=== PATIENT | female | born 1985 | race American Indian/Alaskan Native ===

== ENCOUNTER 2022-02-07 06:09 | Day surgery (SDC) | payer BC ==
[2022-02-04 11:06] LABS: Hematocrit 37.2 % (30.3-42.9); Hemoglobin 12.6 gm/dl (10.1-14.3); Mean Corpuscular HGB Conc 34 % (30-34); Mean Corpuscular Volume 88 fl (79-97); Platelet Count 263 K/mm3 (140-440); Red Blood Count 4.22 M/mm3 (3.65-5.03); Red Cell Distribution Width 13.8 % (13.2-15.2)
[2022-02-04 11:27] LABS: BUN/Creatinine Ratio 13; Blood Urea Nitrogen 10 mg/dL (7-17); Calcium 8.5 mg/dL (8.4-10.2); Hemolysis Index 7
--- NOTE | 2022-02-06 13:41 | History and Physical Report ---
History of Present Illness Date of examination: 02/04/22 History of present illness: This is a 36 years old female who presents with uterine fibroids and menstrual disorder. The symptoms began 4-6 months ago. The patient complains of pelvic pressure a menses, heavy bleeding, dysmenhorrhea, , lightheadness, fatigue and cramping, but denies spotting, lack of menses, she may be , history of thyroid disease, history of bleeding disorders and orthostatic symptoms. Menstrual periods have been absent and with excessive flow. Menstrual flow lasts 7 days. Treatment tried to date includes: control pills, Depo Provera and NSAIDs.Patient's work up has included hysterosonogram with a benign endometrial biopsy and revealed multiple myomas. Patient's symptoms when present disrupts her normal daily activities Patient desires definitive treatment Vital Signs: Patient Profile: 36 Years Old Female LMP: 05/2020 Height: 68 inches Weight: 242 pounds BMI: 36.79 Temp: 98.3 degrees F BP sittin / 60 (left arm) Menstrual History: LMP (date): 05/2020 Current Method of Contraception: Other Past History : 3 Term Births: 3 Premature Births: 0 Living Children: 3 Para: 3 Mult. Births: 0 Prev : 1 Aborta: 0 Elect. Ab: 0 Spont. Ab: 0 Ectopics: 0 Current Allergies (reviewed today): AMOXICILLIN (AMOXICILLIN) (Critical) * ZPACK (Critical) Past Medical History: Asthma Esophageal dysphagia Anemia Fibroids Past Surgical History: Esphogeal "release" surgery (2020) Esophageal stretching multiple Tonsillectomy Left Breast Lumpectomy: (2002) Tubal Ligation (2017) Family History Summary: Other Family Member - Has No Family History of Ovarvian Cancer - Entered On: 10/18/2021 Other Family Member - Has No Family History of Colon Cancer - Entered On: 10/18/2021 Other Family Member - Has Family History Breast Cancer - Entered On: 10/18/2021 Other Family Member - Has Family History of Hypertension - Entered On: 10/18/2021 Social History: Marital Status: / Children: Occupation: Account exec [employer] Risk Factors Tobacco use: never Passive smoke exposure: no Alcohol use: yes Type: OCC Caffeine use (drinks/day): 0 Exercise (times/week): 3 Seatbelt use: 100 % [employer] History Operations: Esphogeal "release" surgery (2020) Esophageal stretching multiple Tonsillectomy Left Breast Lumpectomy: (2002) Tubal Ligation (2017) Abnormal PAP: positive Uterine Anomaly: positive fibroids Infection History HIV Risk Eval: no Hx of STD: None Review of Systems General Complains of fatigue. Denies fever, chills, sweats, anorexia, weakness, malaise, weight loss and sleep disorder. Complains of menorrhagia, pelvic pain and painful periods. Denies vaginal discharge, incontinence, dysuria, hematuria, urinary frequency, amenorrhea, abnormal vaginal bleeding, genital sores, decreased libido, painful sex, urinary urgency, hot flashes, vaginal dryness, vaginal i tching and vaginal odor. CV Denies chest pains, palpitations, syncope, dyspnea on exertion, orthopnea, PND and peripheral edema. Resp Denies cough, dyspnea at rest, excessive sputum, hemoptysis, wheezing and pleurisy. GI Denies nausea, vomiting, diarrhea, constipation, change in bowel habits, abdominal pain, melena, hematochezia, jaundice, gas/bloating, indigestion/heartburn, dysphagia and odynophagia. Breast Denies left breast lump, right breast lump, nipple discharge, bloody discharge from nipple, breast pain, abnormal mammogram and breast enlargement. Psych Denies depression, anxiety, irritability and mood swings. Past History Past Medical History: other (SEE HPI FOR DETAILS) Past Surgical History: Other (SEE HPI FOR DETAILS) Social history: full code, other (SEE HPI FOR DETAILS) Family history: other (SEE HPI FOR DETAILS) Medications and Allergies Allergies Allergy/AdvReac Type Severity Reaction Status Date / Time amoxicillin Allergy Anaphylaxis Verified 01/29/22 13:29 azithromycin Allergy Hives Verified 01/29/22 13:29 [From Zithromax Z-Lopez] Home Medications Medication Instructions Recorded Confirmed Last Taken Type Albuterol Sulfate [Proair 90 mcg IH PRN PRN 01/29/22 01/29/22 Unknown History Respiclick] Etonogestrel/Ethinyl Estradiol 1 each VG Q3W 01/29/22 01/29/22 Unknown History [Nuvaring Vaginal Ring] Fluticasone (Nf) [Flovent Hfa(Nf)] 2 puff IH BID 01/29/22 01/29/22 Unknown History medroxyPROGESTERone ACETATE 10 mg PO QDAY 01/29/22 01/29/22 Unknown History [Provera] Active Meds: Active Medications Clindamycin HCl (Cleocin 900 Mg/50 Ml) 900 mg in 50 mls @ 100 mls/hr IV PREOP NR; Protocol Stop: 02/07/22 23:59 Gentamicin Sulfate 500 mg/ (Sodium Chloride) 112.5 mls @ 200 mls/hr IV PREOP ONE; Protocol Stop: 02/07/22 07:33 Review of Systems Constitutional: other (SEE HPI FOR DETAILS) Exam - Physical Exam Narrative exam: HEENT: normocephalic, no lesions or deformities Skin no significant abnormal lesions or rashes Chest: respiratory effort normal, clear to auscultation CV: regular, normal S1-S2, no murmur, no rub, no gallop Abdomen: obese normal bowel sounds, soft, nontender, no HSM Well healed pfannenstiel scar Neuro: no gross anomalities Extremities: no clubbing, cyanosis, or edema [employer] Exams Vulva/Vagina: No lesions, normal BUS, normal rugae blood in vault Cervix: No lesions; no cervical motion tenderness Uterus: unable to palpate due to obesity Adnexae: unable to palpate due to obesity Rectovaginal: exam defered - Constitutional Vitals: Temp Pulse Resp BP Pulse Ox 97.7 F 84 16 122/84 99 02/04/22 10:35 02/04/22 10:35 02/04/22 10:35 02/04/22 10:35 02/04/22 10:35 Results - Labs CBC & Chem 7: 02/04/22 Unknown 02/04/22 Unknown Assessment and Plan - Patient Problems (1) Intramural leiomyoma of uterus Status: Acute Plan to address problem: Diagnosis explained to patient . Questions answered. Discussed with patient various medical, surgical and radiological therapies common for treatment including expectant management, myomectomy hysterectomy and uterine artery embolization Patient desires hysterectomy Discussed risks and benefits of laparotomy, laparoscopy, vaginal and robotic assisted approaches for hysterectomies Patient desires robotic assisted total hysterectomy. Consent reviewed and signed . The risks and alternatives for this surgery were reviewed with the patient. Discuss the risks of the surgery including infection, bleeding possibly heavy enough to require a blood transfusion, possible damage to bowel, bladder or ureter. Patient understand that this surgery with make her sterile.Patient understands if her ovaries are removed she will become menopausal. Also if unable to complete robitcally a laparotomy may be required. Patient understands and desires to proceed. (2) Dysmenorrhea Status: Acute Plan to address problem: Probably secondary to # 1 (3) Excessive and frequent menstruation with regular cycle Status: Acute Plan to address problem: Probably secondary to # 1 (4) Anemia due to acute blood loss Status: Acute Plan to address problem: Probably secondary to # 3 (5) Asthma Status: Chronic Qualifiers: Asthma severity: moderate (6) Esophageal dysphagia Status: Chronic (7) BMI 35.0-35.9,adult Status: Chronic Plan to address problem: Patient has been advised that obesity does increase risks of surgical and risks of post operative complications.
[~2022-02-07 06:09] MED LIST: ACETAMINOPHEN 500 MG TAB PO SCH; CELECOXIB 200 MG CAP PO NR; GABAPENTIN 300 MG CAP PO NR; LACTATED RINGERS 1,000 ML IV SCH; MIDAZOLAM 2 MG/2 ML INJ IV NR; SCOPOLAMINE TRANSDERMAL PATCH 72 HR TD NR; fentaNYL 100 MCG/2 ML INJ IV PRN
[2022-02-07] MEDS ORDERED: GENTAMICIN 500 MG in SODIUM CHLORIDE 0.9% 100 ML IV ONE (07:00)
--- NOTE | 2022-02-07 07:14 | Anesthesia Consultation ---
<MEGAN DEVINE - Last Filed: 02/07/22 07:11> Anesthesia Consult and Med Hx Date of service: 02/07/22 - Airway Anesthetic Teeth Evaluation: Good ROM Head & Neck: Adequate Mental/Hyoid Distance: Adequate Mallampati Class: Class II Intubation Access Assessment: Probably Good - Pulmonary Exam CTA: Yes - Cardiac Exam Cardiac Exam: RRR - Pre-Operative Health Status ASA Pre-Surgery Classification: ASA2, ASA3 - Pulmonary Hx Smoking: Yes (VAPES DAILY) Hx Asthma: Yes (CONTROLLED WITH INHALERS) Hx Pneumonia: No - Cardiovascular System Hx Hypertension: No Hx Heart Attack/AMI: No - Central Nervous System Hx Neuromuscular Disorder: No Hx Psychiatric Problems: No - Gastrointestinal Hx Gastroesophageal Reflux Disease: Yes (uncontrolled ) - Endocrine Hx Renal Disease: No Hx Liver Disease: No - Hematic Hx Anemia: Yes Hx Sickle Cell Disease: No - Other Systems Hx Alcohol Use: Yes (DRINKS 2-3 TIMES A WEEK) Hx Substance Use: No Hx Cancer: No Hx Obesity: Yes (BMI 36.5) - Additional Comments Anesthesia Medical History Comments: No GAC. No FHAC. <YANDY MALAVE - Last Filed: 02/07/22 07:18> Anesthesia Consult and Med Hx - Pre-Operative Health Status ASA Pre-Surgery Classification: ASA3
--- NOTE | 2022-02-07 07:14 | Anesthesia Day of Surgery ---
Anesthesia Day of Surgery - Day of Surgery Patient Examined: Yes Patient H&P Reviewed: Yes Patient is NPO: Yes
[2022-02-07] MEDS ORDERED: oxyCODONE /ACETAMINOPHEN 5-325MG TAB PO PRN (07:18)
[2022-02-07] MEDS ORDERED: ONDANSETRON 4 MG/2 ML INJ IV PRN (07:18)
[2022-02-07] MEDS ORDERED: HYDROmorphone 0.5 MG/0.5 ML INJ IV PRN (07:18)
[2022-02-07] MEDS ORDERED: BUPIVACAINE-EPINEPHRINE/PF 0.25%-1:200,000 (30 ML) VIAL INFILTRATI ONE (07:23)
[2022-02-07] MEDS ORDERED: dexAMETHasone 4 MG/ML VIAL ONE (07:23)
[2022-02-07] MEDS ORDERED: LIDOCAINE MPF (2%) 20 MG/1 ML VIAL 5 ML ONE ×2 (07:26→07:30)
[2022-02-07] MEDS ORDERED: propofoL 200 MG/20 ML VIAL IV ONE (07:30)
[2022-02-07] MEDS ORDERED: dexAMETHasone 20 MG/5 ML VIAL ONE (07:30)
[2022-02-07] MEDS ORDERED: ePHEDrine SULFATE 50 MG/1 ML INJ ONE (07:30)
[2022-02-07] MEDS ORDERED: HYDROmorphone 1 MG/1 ML INJ ONE (07:30)
[2022-02-07] MEDS ORDERED: SUCCINYLCHOLINE CHLORIDE 200 MG/10 ML INJ MDV ONE (07:30)
[2022-02-07] MEDS ORDERED: ROCURONIUM 50 MG/5 ML INJ IV ONE (07:30)
[2022-02-07] MEDS ORDERED: NEOMY 40 MG/POLYMYXIN B 200,000 UNITS/ML (GU) AMPULE IR ONE ×2 (07:43→10:52)
[2022-02-07] MEDS ORDERED: SODIUM CHLORIDE 0.9% IRRIG SOLN 2000 ML IR ONE (10:52)
[2022-02-07] MEDS ORDERED: SODIUM CHLORIDE 0.9% IRR 1,500 ML BOTTLE IR ONE (10:52)
[2022-02-07] MEDS ORDERED: IBUPROFEN 600 MG TAB PO PRN (10:55)
[2022-02-07] MEDS ORDERED: HYDROcodone/ACETAMINOPHEN 5-325 MG TAB PO PRN (10:55)
--- NOTE | 2022-02-07 11:14 | Operative Report ---
Operative Report Operative Report: Date of procedure: February 07, 2022 Pre-operative diagnosis: Symptomatic leiomyomata with menorrhalgia dysmenorrhea pelvic pain Post-operative diagnosis: Same with pelvic adhesive disease Procedure name(s):Robotic Assisted Total Hysterectomy with bilateral salpingectomy Surgeon: Ted Clark MD Building Drafter: Marlin Jimenez, certified personal finance counselor Anesthesia: General EBL: 100 cc Complications: None Findings: Patient with a uterus approximately 10-12 weeks in size with adhesions between anterior uterus and the bladder and bilaterally interrupted fallopian tubes. Bilateral ovaries appear normal Specimen(s): Uterus with bilateral fallopian tubes Procedure: Patient was brought to the operating room where general anesthesia was induced without difficulty. Patient was placed in the dorsal lithotomy position. Prepped and draped in the usual sterile manner for robotic procedure. Surgical timeout was performed. Vazquez catheter was placed without difficulty. Speculum was placed in the vagina. A large V-Care Uterine manipulator was placed without difficulty. Attention was now switched to the patient's abdomen. A vertical supra-umbilicus incision was made with a scalpel. A 8 mm trocar was placed in this incision under direct visualization. Intra-abdominal placement was verified with no evidence of internal organ damage. The patient was insufflated approximately 3-1/2 L of CO2 gas. She was placed in Trendelenburg position. The patient pelvic findings were noted as above. It was determined that the patient was a candidate for robotic procedure. Next 3 additional 8 mm trochars were placed for the robotic arms. 1 trocar was placed approximately 8cm from the center trocar on the patient's right and the 2 other trocar placements were placed left of the midline. The first 1 was approximately 8 cm from the midline incision with additional 1 place laterally approximately 6 to 8 cm. Each robotic trocar was placed under direct visualization with no evidence of internal organ damage. One 5 mm trocar was placed 2 fingerbreadths above the right iliac crest. At this time the patient was placed in extreme Trendelenburg. The da Louis robot was then docked on the patient's right side. The trocars connected to the robot appropriately robotic instruments were placed under direct visualization no evidence of internal organ damage.. At this time I took my place under the robotic operating solis. Starting on the patient's right side the ureter was identified and found to be out of the operative field. Using the Synchroseal device the mesosalpinx under the fallopian tube were cauterized and cut starting from the distal end. Next the round ligament on that side was cauterized and cut. The broad ligament was opened and the bladder flap was started and taken to the midline on the side. Posterior leaf of the broad ligament was opened more. Next the utero-ovarian complex was then cauterized and cut. The uterine vessels were skeletonized. The ureter was clearly seen out of the operative field. The bladder was pushed away from the anterior uterus. The right uterine vessels were then cauterized and cut. Attention was then switched to the patient's left side. The same procedure was repeated on the left side with free and the left fallopian tube, completing the the bladder flap followed by cauterizing and cutting the utero-ovarian complex then isolating the uterine vessels cauterized and cutting and completing the bladder flap from the left side. At this time the uterus was appearing very cyanotic. After inspecting the bladder flap to insured no evidence of bladder injury, the colpotomy was then started. Incision started at 12 o'clock position until the V-Care could be seen. This incision was extended from 12-9 o'clock . Then from 12:00 to 3:00. Then from 9:00 to 6:00. This incision was extended from 3:00 to 6:00. At this time colpotomy was complete with no evidence of adjacent organ damage. The manager surgery remove the uterus from through the colpotomy site. The vaginal cuff was irrigated and cauterized and found to be hemostatic. The cuff was closed with roboticly using 0 V- Lock suture. This closure was hemostatic after irrigation and Bovie. All pedicles were inspected and found to be hemostatic. The ureters were identified bilaterally and found to be functioning normal. The patient had clear urine in the Vazquez catheter with no evidence of mixture with blood. All instruments were then removed. The trocar sites were closed incisions were closed subcuticularly with 4-0 Monocryl. Dermabond was placed over the skin incisions. The patient tolerated procedure well. She was awakened in the operating room and accompanied to the recovery room in good condition.
--- NOTE | 2022-02-07 11:19 | Short Stay Summary ---
Short Stay Documentation Date of service: 02/07/22 - History Principal diagnosis: Symptomatic leiomyomata H&P: dictated Past Medical History: other (SEE HPI FOR DETAILS) Past Surgical History: Other (SEE HPI FOR DETAILS) Social history: full code, other (SEE HPI FOR DETAILS) - Allergies and Medications Current Medications: Allergies amoxicillin Allergy (Verified 01/29/22 13:29) Anaphylaxis azithromycin [From Zithromax Z-Lopez] Allergy (Verified 01/29/22 13:29) Hives Home Medications Medication Instructions Recorded Confirmed Last Taken Type Albuterol Sulfate [Proair 90 mcg IH PRN PRN 01/29/22 01/29/22 Unknown History Respiclick] Etonogestrel/Ethinyl Estradiol 1 each VG Q3W 01/29/22 01/29/22 Unknown History [Nuvaring Vaginal Ring] Fluticasone (Nf) [Flovent Hfa(Nf)] 2 puff IH BID 01/29/22 02/07/22 02/07/22 05:00 History medroxyPROGESTERone ACETATE 10 mg PO QDAY 01/29/22 02/07/22 02/04/22 09:00 Histo ry [Provera] Active Medications Acetaminophen (Acetaminophen 500 Mg Tab) 1,000 mg PO PREOP CHUCKIE Stop: 02/07/22 23:59 Last Admin: 02/07/22 06:55 Dose: 1,000 mg Hydrocodone Bitart/Acetaminophen (Hydrocodone/Acetaminophen 5-325 Mg Tab) 2 each PO Q6H PRN PRN Reason: Pain, Moderate (4-6) Celecoxib (Celecoxib 200 Mg Cap) 200 mg PO PREOP NR Stop: 02/07/22 23:59 Last Admin: 02/07/22 06:55 Dose: 200 mg Fentanyl (Fentanyl 100 Mcg/2 Ml Inj) 100 mcg IV ONCE PRN PRN Reason: sedation for nerve block Stop: 02/07/22 23:59 Last Admin: 02/07/22 07:46 Dose: 100 mcg Gabapentin (Gabapentin 300 Mg Cap) 300 mg PO PREOP NR Stop: 02/07/22 23:59 Last Admin: 02/07/22 06:55 Dose: 300 mg Hydromorphone HCl (Hydromorphone 0.5 Mg/0.5 Ml Inj) 0.5 mg IV Q10MIN PRN PRN Reason: Pain , Severe (7-10) Stop: 02/07/22 23:59 Clindamycin HCl (Cleocin 900 Mg/50 Ml) 900 mg in 50 mls @ 100 mls/hr IV PREOP NR; Protocol Stop: 02/07/22 23:59 Lactated Ringer's (Lactated Ringers) 1,000 mls @ 100 mls/hr IV DIRECT CHUCKIE Stop: 02/07/22 23:59 Last Admin: 02/07/22 07:05 Dose: 100 mls/hr Ibuprofen (Ibuprofen 600 Mg Tab) 600 mg PO Q6H PRN PRN Reason: Pain, Mild (1-3) Methocarbamol (Methocarbamol 750 Mg Tab) 750 mg PO PREOP CHUCKIE Stop: 02/07/22 23:59 Last Admin: 02/07/22 06:55 Dose: 750 mg Midazolam HCl (Midazolam 2 Mg/2 Ml Inj) 2 mg IV PREOP NR Stop: 02/07/22 23:59 Last Admin: 02/07/22 07:46 Dose: 2 mg Ondansetron HCl (Ondansetron 4 Mg/2 Ml Inj) 4 mg IV ONCE PRN PRN Reason: Nausea And Vomiting Stop: 02/07/22 23:59 Oxycodone/Acetaminophen (Oxycodone /Acetaminophen 5-325mg Tab) 1 tab PO ONCE PRN PRN Reason: Pain, Moderate (4-6) Stop: 02/07/22 20:00 Scopolamine (Scopolamine Transdermal Patch 72 Hr) 1 each TD PREOP NR Stop: 02/07/22 23:59 Last Admin: 02/07/22 06:55 Dose: 1 each - Physical exam General appearance: no acute distress, well-nourished, obese Integumentary: no rash HEENT: Atraumatic Lungs: Normal air movement Heart: Regular rate Gastrointestinal: normal, hypoactive bowel sounds (As expected postop), tenderness (As expected postoperative), distended (As expected post robotic procedure) Female Genitourinary: normal Extremities: no ischemia, No edema - Brief post op/procedure progress note Date of procedure: 02/07/22 (See dictated operative note for details) Specimen disposition: to lab Condition: stable - Hospital course Hospital course: Patient was admitted underwent the above procedure without any complications. Patient will be discharged with follow-up in office in 1-2 weeks for postop check. - Disposition Condition at discharge: Good Disposition: 01 HOME / SELF CARE / HOMELESS - Discharge Diagnoses (1) Intramural leiomyoma of uterus Status: Acute (2) Dysmenorrhea Status: Acute (3) Excessive and frequent menstruation with regular cycle Status: Acute (4) Anemia due to acute blood loss Status: Acute (5) Asthma Status: Chronic Qualifiers: Asthma severity: moderate (6) Esophageal dysphagia Status: Chronic (7) BMI 35.0-35.9,adult Status: Chronic Short Stay Discharge Plan Activity: advance as tolerated Diet: regular Wound: open to air Additional Instructions: Patient instructed no heavy lifting for 4 weeks. No intercourse for 8 weeks. Call office for fever, chills, nausea, vomiting or pain not controlled by pain medications. Ambulation is encouraged. Patient's call for heavy vaginal bleeding. Patient instructed to keep her scheduled post operative office appointment. Follow up with: PRIMARY CAREMD [Primary Care Provider] - 7 Days Forms: Outpatient Surgery CHANTELL Inst.
[2022-02-07] MEDS ORDERED: MEPERIDINE 25 MG/1 ML INJ ONE (11:28)
[2022-02-07] MEDS ORDERED: MEPERIDINE 25 MG/1 ML INJ IV PRN (11:30)
[2022-02-07 13:37] VITALS: BP 126/86
--- NOTE | 2022-02-07 14:45 | Post Anesthesia Evaluation ---
- Post Anesthesia Evaluation Patient Participated: Yes Airway Patent: Yes Stable Respiratory Function: Yes Nausea/Vomiting: No Temp > 96.8F: Yes Pain Manageable: Yes Adequeate Hydration: Yes Anesthesia Complications: No
== END 2022-02-07 13:25 | disposition home or self-care (01) ==
LOC: OR 06:09
PROVIDERS: ATTEND Obstetrics & Gynecology
DX: N92.0 Excessive and frequent menstruation with regular cycle (principal); D25.1 Intramural leiomyoma of uterus; N72 Inflammatory disease of cervix uteri; Q50.4 Embryonic cyst of fallopian tube; N94.6 Dysmenorrhea, unspecified; F17.210 Nicotine dependence, cigarettes, uncomplicated; J45.909 Unspecified asthma, uncomplicated; G43.909 Migraine, unspecified, not intractable, without status migrainosus; K21.9 Gastro-esophageal reflux disease without esophagitis; E66.9 Obesity, unspecified; M19.90 Unspecified osteoarthritis, unspecified site; D64.9 Anemia, unspecified; Z20.822 Contact with and (suspected) exposure to COVID-19; Z88.6 Allergy status to analgesic agent; Z79.899 Other long term (current) drug therapy; Z68.36 Body mass index [BMI] 36.0-36.9, adult; Z98.51 Tubal ligation status; Z87.440 Personal history of urinary (tract) infections; Z72.89 Other problems related to lifestyle; Z98.890 Other specified postprocedural states
CPT/HCPCS: 36415; 58573; 64488; 80048; 84703; 85027; 86850; 86900; 86901; 88302; 88307; J0330; J1100; J1170; J1580; J2175; J2250; J2405; J2704; J3010; J3490; J7502; S2900; U0003; 64450